=== PATIENT | female | born 1965 | race Hispanic/Latino ===

== ENCOUNTER 2021-07-08 05:59 | Day surgery (SDC) | payer OTHER ==
[2021-07-04 11:07] LABS: Hematocrit 45.7 % (30.3-42.9); Hemoglobin 15.3 gm/dl (10.1-14.3); Mean Corpuscular HGB Conc 33 % (30-34); Mean Corpuscular Volume 90 fl (79-97); Platelet Count 163 K/mm3 (140-440); Red Blood Count 5.06 M/mm3 (3.65-5.03); Red Cell Distribution Width 13.7 % (13.2-15.2)
--- NOTE | 2021-07-08 00:24 | History and Physical Report ---
History of Present Illness Date of examination: 07/08/21 Date of admission: 07/08/2021 Chief complaint: postmenopausal bleeding History of present illness: Patient with history of postmenopausal bleeding s/p failed in-office sampling presents for hysteroscopy D&C. Voices no complaints. Notes some intermittent spotting, which has been occurring since April. Only requires a pantyliner. Initially had associated cramping, but now denies abdominal pain. Desires to p roceed with scheduled procedure. Past History Past Medical History: hypertension Past Surgical History: cholecystectomy, tonsillectomy, section Social history: no significant social history Medications and Allergies Allergies Allergy/AdvReac Type Severity Reaction Status Date / Time No Known Allergies Allergy Unverified 07/01/21 16:50 Home Medications Medication Instructions Recorded Confirmed Last Taken Type atenoloL [Tenormin] 50 mg PO DAILY 07/01/21 07/01/21 Unknown History lisinopriL [Lisinopril] 20 mg PO DAILY 07/01/21 07/01/21 Unknown History Active Meds: Active Medications Lactated Ringer's (Lactated Ringers) 1,000 mls @ 100 mls/hr IV DIRECT BECCA Stop: 07/08/21 23:59 Midazolam HCl (Midazolam 2 Mg/2 Ml Inj) 2 mg IV PREOP BECCA Review of Systems All systems: negative Genitourinary: vaginal bleeding (postmenopausal ) - Vital Signs Vital signs: Vital Signs Temp Pulse Resp BP Pulse Ox 97.9 F 58 L 16 147/94 97 07/04/21 10:55 07/04/21 10:55 07/04/21 10:55 07/04/21 10:55 07/04/21 10:55 Temp Pulse Resp BP Pulse Ox 97.9 F 58 L 16 147/94 97 07/04/21 10:55 07/04/21 10:55 07/04/21 10:55 07/04/21 10:55 07/04/21 10:55 - Physical Exam Cardiovascular: Regular rate, Normal S1, Normal S2 Lungs: Positive: Clear to auscultation Abdomen: Positive: normal appearance, soft, normal bowel sounds. Negative: distention, tenderness Extremities: Results Result Diagrams: 07/04/21 10:50 All other labs normal. Assessment and Plan Patient with PMB and thickened endometrium on sono S/p failed in-office biopsy Procedure reviewed with patient including risks of pain, bleeding, infections, damage to surrounding structurres, uterine perforation, and need for further procedure. Procedure and blood consents signed Preoperative antibiotics not indicated To OR for Hysterocopy D&C - Patient Problems (1) Postmenopausal bleeding Status: Acute (2) Thickened endometrium Status: Acute
[2021-07-08] MEDS ORDERED: LACTATED RINGERS 1,000 ML IV SCH (06:00)
[2021-07-08] MEDS ORDERED: MIDAZOLAM 2 MG/2 ML INJ IV SCH (06:00)
--- NOTE | 2021-07-08 07:23 | Anesthesia Consultation ---
Anesthesia Consult and Med Hx Date of service: 07/08/21 - Airway Anesthetic Teeth Evaluation: Good (small mouth opening) ROM Head & Neck: Adequate Mental/Hyoid Distance: Inadequate Mallampati Class: Class III Intubation Access Assessment: Possibly Difficult - Pre-Operative Health Status ASA Pre-Surgery Classification: ASA3 Proposed Anesthetic Plan: General - Pulmonary Hx Smoking: No Hx Respiratory Symptoms: No - Cardiovascular System Hx Hypertension: Yes (took antihypertensives last night) - Central Nervous System CVA: No - Endocrine Hx Renal Disease: No Hx Liver Disease: No Hx Insulin Dependent Diabetes: No Hx Non-Insulin Dependent Diabetes: No Hx Thyroid Disease: No - Other Systems Hx Obesity: Yes (BMI 47) - Additional Comments Anesthesia Medical History Comments: No hx anesthetic complications.
[2021-07-08] MEDS ORDERED: propofoL 200 MG/20 ML VIAL IV ONE ×2 (07:24→09:27)
[2021-07-08] MEDS ORDERED: fentaNYL 100 MCG/2 ML INJ ONE (07:24)
[2021-07-08] MEDS ORDERED: fentaNYL 100 MCG/2 ML INJ IV PRN (07:24)
[2021-07-08] MEDS ORDERED: HYDROcodone/ACETAMINOPHEN 5-325 MG TAB PO PRN (07:24)
--- NOTE | 2021-07-08 07:24 | Anesthesia Day of Surgery ---
Anesthesia Day of Surgery - Day of Surgery Patient Examined: Yes Patient H&P Reviewed: Yes Patient is NPO: Yes
[2021-07-08] MEDS ORDERED: LIDOCAINE PF 100 MG/5 ML (CARDIAC SYRINGE) IV ONE (07:26)
[2021-07-08] MEDS ORDERED: ONDANSETRON 4 MG/2 ML INJ ONE (07:26)
[2021-07-08] MEDS ORDERED: SODIUM CHLORIDE 0.9% IRRIG SOLN 2000 ML IR ONE (08:30)
[2021-07-08] MEDS ORDERED: SUGAMMADEX SODIUM 200 MG/2 ML VIAL IV ONE (09:03)
--- NOTE | 2021-07-08 09:11 | Operative Report ---
Operative Report Operative Report: Operative Report: PREOPERATIVE DIAGNOSIS: postmenopausal bleeding, for hysteroscopy, D&C, polypectomy POSTOPERATIVE DIAGNOSIS: postmenopausal bleeding and endometrial polyps, s/p hysteroscopy, D&C, polpectomy PROCEDURE: Hysteroscopy D&C and polypectomy EBL: Minimal. ANESTHESIA: General. COMPLICATIONS: None TOTAL IV FLUIDS: 500 mL FLUID DEFICIT: 295 ml URINE OUTPUT: 25 mL FINDINGS: EUA: age-appropriate external genitalia, small anteverted uterus, cervix with no lesions noted Hysteroscopy: endometrial polyps largest approximately 1 cm, thickened fluffy endometrium PROCEDURE IN DETAIL: Risks, benefits and alternatives discussed with the patient at length. Informed consent was obtained. The patient was taken to the operating room. General anesthesia was obtained without difficulty. She was prepped and draped in the normal sterile fashion in lithotomy position in yellowfin stirrups. Examination under anesthesia revealed the above. Speculum was placed inside the vagina. The anterior lip of the cervix was grasped with single-tooth tenaculum. The cervix was gently dilated to accommodate the 5 mm diagnostic hysteroscope. Above findings were noted. The Myosure Reach was inserted through to operative port and the polyps were removed. The hysteroscope was removed. Sharp curettage followed. Endometrial curettings obtained and sent to pathology. The hysteroscope was reintroduced. An additional polyp noted, so Myosure Reach reintroduced and the polyp removed. The endometrial cavity was noted to be clear of polyps. All instruments removed from the patients vagina. Hemostasis was noted from the tenaculum site. The patient was taken to the recovery room in stable condition.
--- NOTE | 2021-07-08 09:15 | Short Stay Summary ---
Short Stay Documentation Date of service: 07/08/21 Narrative H&P: Patient with h/o postmenopausal bleeding. S/p failed EMS in the office. To OR for hysteroscopy D&C. - History Principal diagnosis: postmenopausal bleeding H&P: dictated Past Medical History: hypertension Past Surgical History: cholecystectomy, tonsillectomy Social history: no significant social history - Allergies and Medications Current Medications: Allergies No Known Allergies Allergy (Unverified 07/01/21 16:50) Home Medications Medication Instructions Recorded Confirmed Last Taken Type atenoloL [Tenormin] 50 mg PO DAILY 07/01/21 07/08/21 07/07/21 20:00 History lisinopriL [Lisinopril] 20 mg PO DAILY 07/01/21 07/08/21 07/07/21 20:00 History Ibuprofen [Motrin 800 MG tab] 800 mg PO Q8HR #30 tablet 07/08/21 Unknown Rx Active Medications Hydrocodone Bitart/Acetaminophen (Hydrocodone/Acetaminophen 5-325 Mg Tab) 2 each PO ONCE PRN PRN Reason: Pain, Moderate (4-6) Stop: 07/08/21 12:00 Fentanyl (Fentanyl 100 Mcg/2 Ml Inj) 50 mcg IV Q5MIN PRN PRN Reason: Pain , Severe (7-10) Stop: 07/08/21 20:00 Lactated Ringer's (Lactated Ringers) 1,000 mls @ 100 mls/hr IV DIRECT BECCA Stop: 07/08/21 23:59 Last Admin: 07/08/21 07:24 Dose: 100 mls/hr Midazolam HCl (Midazolam 2 Mg/2 Ml Inj) 2 mg IV PREOP BECCA Last Admin: 07/08/21 07:25 Dose: 2 mg - Physical exam General appearance: no acute distress Integumentary: no rash, no growths, no abnormal pigmentation Gastrointestinal: normal Female Genitourinary: normal Extremities: no ischemia, No edema - Brief post op/procedure progress note Date of procedure: 07/08/21 Pre-op diagnosis: postmenopausal bleeding Post-op diagnosis: same (endometrial polyp) Anesthesia: GETA Findings: NEFG; small anteeverted uterus; On hysteroscopy multiple polyps noted with fluffy endometrium Estimated blood loss: minimal Pathology: list (endometrial polpys, endometrial curettings) Specimen disposition: to lab Condition: stable - Hospital course Hospital course: Patient with PMB. To OR for hysteroscopy D&C and polypectomy. See operative report for additional details. Patient tolerated procedure well. - Disposition Disposition: 01 HOME / SELF CARE / HOMELESS - Discharge Diagnoses (1) Postmenopausal bleeding Status: Acute (2) Thickened endometrium Status: Acute Short Stay Discharge Plan Activity: other (pelvic rest for 2-4 weeks) Weight Bearing Status: Full Weight Bearing Diet: regular Follow up with: MOHSEN SUAREZ MD [Staff Physician] - 7 Days Prescriptions: Ibuprofen [Motrin 800 MG tab] 800 mg PO Q8HR #30 tablet
[2021-07-08] MEDS ORDERED: dexAMETHasone 20 MG/5 ML VIAL ONE (09:25)
[2021-07-08] MEDS ORDERED: SUCCINYLCHOLINE CHLORIDE 200 MG/10 ML INJ MDV ONE (09:26)
[2021-07-08] MEDS ORDERED: GLYCOPYRROLATE 0.4 MG/2 ML INJ ONE (09:26)
[2021-07-08] MEDS ORDERED: ROCURONIUM 50 MG/5 ML INJ IV ONE (09:26)
[2021-07-08 10:06] VITALS: BP 151/94
--- NOTE | 2021-07-08 11:37 | Post Anesthesia Evaluation ---
- Post Anesthesia Evaluation Patient Participated: Yes Airway Patent: Yes Stable Respiratory Function: Yes Nausea/Vomiting: No Temp > 96.8F: Yes Pain Manageable: Yes Adequeate Hydration: Yes Anesthesia Complications: No
== END 2021-07-08 10:16 | disposition home or self-care (01) ==
LOC: OR 05:59
PROVIDERS: ATTEND Obstetrics & Gynecology
DX: N95.0 Postmenopausal bleeding (principal); N84.0 Polyp of corpus uteri; I10 Essential (primary) hypertension; Z20.822 Contact with and (suspected) exposure to COVID-19; E66.9 Obesity, unspecified; Z68.42 Body mass index [BMI] 45.0-49.9, adult; Z79.899 Other long term (current) drug therapy; Z90.49 Acquired absence of other specified parts of digestive tract; Z98.890 Other specified postprocedural states
CPT/HCPCS: 36415; 58558; 85027; 88305; C1782; J0330; J1100; J1815; J2001; J2250; J2405; J2704; J3010; J3490; J7120; U0003